=== PATIENT | female | born 1960 | race Caucasian/White ===

== ENCOUNTER 2023-02-09 17:44 | Emergency (ER) | payer BC, SELFPAY ==
[~2023-02-09 17:44] MED LIST: Iopamidol-370 76% 500 ML MDV (1 ML CHARGE) ONE
[2023-02-09 18:13] LABS: Hematocrit 31.5 % (36.0-47.0); Hemoglobin 11.1 g/dL (12.0-16.0); Mean Corpuscular HGB CONC 35.2 g/dL (32.0-36.0); Mean Corpuscular Hemoglobin 36.6 pg (27.0-31.0); Mean Platelet Volume 9.7 fL (7.4-10.4); Platelet Count 118 10x3/uL (130-400); RBC Distribution Width 13.3 % (11.5-14.5); Red Blood Cell (RBC) Count 3.03 mill/uL (4.20-5.40); White Blood Cell (WBC) Count 4.6 10x3/uL (4.8-10.8)
[2023-02-09 18:16] LABS: Delete Auto Diff?? YES; Manual Diff?? YES
[2023-02-09 18:33] LABS: ALT (SGPT) 19 U/L (8-55); AST (SGOT) 47 U/L (5-34); Albumin 4.4 g/dL (3.4-4.8); Alkaline Phosphatase 102 U/L (40-110); Anion Gap 20 mmol/L (10-20); BUN (Urea Nitrogen) 18 mg/dL (9.8-20.1); Bilirubin, Total 0.3 mg/dL (0.2-1.2); Calc. Creatinine Clearance 0 mL/min (70-130); Calcium 8.9 mg/dL (7.8-10.44); Carbon Dioxide 19 mmol/L (23-31); Chloride 104 mmol/L (98-107); Estimated GFR 87; Glucose 84 mg/dL (80-115); Lipase 51 U/L (8-78); Potassium 3.3 mmol/L (3.5-5.1); Protein, Total 8.4 g/dL (5.8-8.1); Sodium 140 mmol/L (136-145)
[2023-02-09 18:38] LABS: Band 18 % (5-11); CellaVision Operator ID LAB.MJL; Eosinophils 2 % (0-10); Large Platelets 3.1 % (0-5); Lymphocytes 37 % (21-51); Macrocytosis SLIGHT = 6-15 cells HPF (0-5); Monocytes 4 % (0-10); Neutrophil 32 % (42-75); Platelet Adequacy Comment Platelets Decreased; Reactive Lymphocytes 6 % (0-10); Total Cell Count 98
[2023-02-09 19:09] LABS: Magnesium 1.6 mg/dL (1.6-2.6)
[2023-02-09 20:48] LABS: Bilirubin Negative (Negative); Blood, Urine Trace (Negative); Glucose, Urine (Dipstick) Negative (Negative); Ketone, Urine Negative (Negative); Leukocyte Negative (Negative); Nitrite Negative (Negative); Protein, Urine (Dipstick) Negative (Neg-Trace); Urobilinogen 0.2 mg/dL (Less than 2); pH, Urine 5.5 (5.0-9.0)
[2023-02-09 20:53] LABS: Clarity Clear (Clear)
[2023-02-09 20:54] LABS: Specific Gravity, Urine 1.018 (1.002-1.036)
[2023-02-09 20:57] LABS: Bacteria/HPF Rare-Few HPF (None Seen); CAUTI Indications for Culture Pelvic or flank pain; RBC/HPF 0-3 HPF (0-3); Squamous Epithelial 0-3 HPF (0-3); WBC/HPF 0-3 HPF (0-3)
[2023-02-09 20:58] LABS: Urine Culture Reflex No No
== END 2023-02-09 21:20 | disposition home or self-care (01) ==
LOC: ERS 17:44
DX: R19.7 Diarrhea, unspecified (principal); I10 Essential (primary) hypertension
CPT/HCPCS: 36415; 74177; 80053; 81001; 82274; 83690; 83735; 85025; 86850; 86900; 86901; 93005; Q9967